=== PATIENT | female | born 1990 | race Caucasian/White ===

== ENCOUNTER → 2023-04-24 | Outpatient (CLI) | payer BC ==
[~2023-04-24] MED LIST: CYCL10 PO
[2023-04-26 04:11] LABS: CHLAMYDIA TRACHOMATIS, NAA Negative (Negative)
== END ==
LOC: LAB 17:33 → LAB SHORT 17:33
PROVIDERS: Family Medicine
DX: Z34.01 Encounter for supervision of normal first pregnancy, first trimester (principal); Z34.81 Encounter for supervision of other normal pregnancy, first trimester; Z3A.01 Less than 8 weeks gestation of pregnancy
CPT/HCPCS: 87086; 87491; 87591

== ENCOUNTER 2023-11-21 05:44 | Inpatient (IN) | payer BC ==
[2023-11-21] VITALS (18 sets, daily range): BP systolic 111–145; BP diastolic 69–100
[~2023-11-21] VITALS: Ht 162.6 cm; Wt 112.3 kg
[~2023-11-21 05:44] MED LIST changes: +CETI5 PO; +ERGO400; +Vitamin B Comple1 EA
[2023-11-21] MEDS ORDERED: Citric Acid/Sodium Citrate 30 ML BTL PO SCH (05:55)
[2023-11-21] MEDS ORDERED: Metoclopramide HCl 5MG / ML 2ML Vial IV ONE (05:55)
[2023-11-21] MEDS ORDERED: Lactated Ringer's 1,000 ML IV SCH ×2 (05:55→06:25)
[2023-11-21] MEDS ORDERED: Cefazolin 2000MG/Dextrose,ISO 50 ML IV SCH (06:00)
[2023-11-21] MEDS ORDERED: CeFAZolin Sodium 2,000 MG in NS 100 ML IV SCH (06:05)
[2023-11-21] MEDS ORDERED: Ondansetron HCl 2 MG / ML 2ML Vial IV PRN ×2 (06:20→09:05)
[2023-11-21] MEDS ORDERED: Oxytocin 10 Unit / ML Vial IM SCH (06:20)
[2023-11-21] MEDS ORDERED: Methylergonovine Maleate 0.2MG / ML 1ML Amp IM SCH (06:25)
[2023-11-21] MEDS ORDERED: FentaNYL Citrate 50 MCG/ML 2 ML Injection IV PRN (06:25)
[2023-11-21] MEDS ORDERED: Carboprost Tromethamine 250 MCG/ML 1ML Amp IM SCH (06:25)
[2023-11-21 06:39] LABS: BASOPHILS ABSOLUTE AUTO 0.02 K/mm3 (0.00-0.23); BASOPHILS PERCENT AUTO 0 % (0-2); EOSINOPHILS ABSOLUTE AUTO 0.16 K/mm3 (0.00-0.68); EOSINOPHILS PERCENT AUTO 2 % (0-6); Hematocrit 31.8 % (33.0-51.0); Hemoglobin 10.8 g/dL (11.5-16.0); IMMATURE GRAN ABSOLUTE AUTO 0.02 K/mm3 (0.00-0.10); IMMATURE GRAN PERCENT AUTO 0 % (0-1); LYMPHOCYTES ABSOLUTE AUTO 1.28 K/mm3 (0.84-5.20); LYMPHOCYTES PERCENT AUTO 17 % (21-46); MONOCYTES ABSOLUTE AUTO 0.48 K/mm3 (0.16-1.47); MONOCYTES PERCENT AUTO 7 % (4-13); Mean Corpuscular Volume 94 fL (80-100); Mean Platelet Volume 11.1 fL (9.1-12.4); NEUTROPHILS ABSOLUTE AUTO 5.47 K/mm3 (1.96-9.15); NEUTROPHILS PERCENT AUTO 74 % (41-73); Platelet Count 168 K/mm3 (150-400); RDW Coefficient Variation 14.3 % (11.7-14.2); RDW Standard Deviation 49.2 fL (35.1-46.3); Red Blood Cell Count 3.37 M/mm3 (3.80-5.20); White Blood Cell Count 7.43 K/mm3 (4.00-11.30)
[2023-11-21 07:03] LABS: Albumin, Blood 2.8 g/dL (3.4-5.0); Albumin/Globulin Ratio 0.7 (0.8-1.8); Bilirubin, Total 0.4 mg/dL (0.1-1.0); Bun/Creatinine Ratio 13.5 (12.0-20.0); Calcium, Blood 9.1 mg/dL (8.5-10.1); Creatinine, Blood 0.52 mg/dL (0.40-1.00); Potassium, Blood 3.5 mmol/L (3.5-5.5); Total Protein, Blood 6.8 g/dL (6.4-8.2)
[2023-11-21] MEDS ORDERED: Morphine Sulfate/PF 1 MG/ML 10MLVIAL ONE (07:19)
[2023-11-21] MEDS ORDERED: Ketorolac Tromethamine 30mg Vial ONE (07:59)
[2023-11-21] MEDS ORDERED: Phenylephrine HCl 100 MCG/ML-NS 10MLSYR (1MG/10ML) ONE (07:59)
--- NOTE | 2023-11-21 08:11 | NUR ---
11/21/23 0811 Patricia Cruz MALE 9/9 APGARS, 3075 GM 6#12
[2023-11-21 08:19] LABS: PCO2 Cord - Arterial 63 mmHg (40-50); pH Cord - Arterial 7.26 (7.28-7.35)
[2023-11-21 08:20] LABS: PO2 Cord - Arterial 17 mmHg (16-20)
[2023-11-21 08:23] LABS: PCO2 Cord - Venous 53 mmHg (40-50); PO2 Cord - Venous > 14.0 mmHg (28-32); pH Umbilical Cord - Venous 7.33 (7.26-7.35)
[2023-11-21] MEDS ORDERED: Methylergonovine Maleate 0.2 MG Tab PO PRN (09:00)
[2023-11-21] MEDS ORDERED: Promethazine HCl 25 MG Tab PO PRN (09:05)
[2023-11-21] MEDS ORDERED: Methylergonovine Maleate 0.2MG / ML 1ML Amp IM PRN (09:05)
[2023-11-21] MEDS ORDERED: Misoprostol 200 MCG Tab PR PRN (09:05)
[2023-11-21] MEDS ORDERED: OxyCODONE HCL 5 MG TAB PO PRN (09:05)
[2023-11-21] MEDS ORDERED: Carboprost Tromethamine 250 MCG/ML 1ML Amp IM PRN (09:05)
[2023-11-21] MEDS ORDERED: Metoclopramide HCl 10 MG Tab PO PRN (09:10)
[2023-11-21] MEDS ORDERED: Acetaminophen 500 MG Tab PO PRN (09:10)
[2023-11-21] MEDS ORDERED: Lanolin Cream TOP SCH (11:40)
[2023-11-21] MEDS ORDERED: Ketorolac Tromethamine 30mg Vial IV SCH (13:50)
[2023-11-21] MEDS ORDERED: Ibuprofen 400 MG Tab PO SCH (16:00)
[2023-11-22 04:25] VITALS: BP 117/64
[2023-11-22 07:04] LABS: BASOPHILS ABSOLUTE AUTO 0.03 K/mm3 (0.00-0.23); BASOPHILS PERCENT AUTO 0 % (0-2); EOSINOPHILS ABSOLUTE AUTO 0.12 K/mm3 (0.00-0.68); EOSINOPHILS PERCENT AUTO 2 % (0-6); Hematocrit 28.9 % (33.0-51.0); Hemoglobin 9.5 g/dL (11.5-16.0); IMMATURE GRAN ABSOLUTE AUTO 0.03 K/mm3 (0.00-0.10); IMMATURE GRAN PERCENT AUTO 0 % (0-1); LYMPHOCYTES ABSOLUTE AUTO 1.08 K/mm3 (0.84-5.20); LYMPHOCYTES PERCENT AUTO 15 % (21-46); MONOCYTES ABSOLUTE AUTO 0.55 K/mm3 (0.16-1.47); MONOCYTES PERCENT AUTO 8 % (4-13); Mean Corpuscular HGB Conc 32.9 g/dL (31.5-36.5); Mean Corpuscular Volume 97 fL (80-100); Mean Platelet Volume 10.8 fL (9.1-12.4); NEUTROPHILS ABSOLUTE AUTO 5.46 K/mm3 (1.96-9.15); NEUTROPHILS PERCENT AUTO 75 % (41-73); Platelet Count 168 K/mm3 (150-400); RDW Coefficient Variation 14.5 % (11.7-14.2); RDW Standard Deviation 50.9 fL (35.1-46.3); Red Blood Cell Count 2.97 M/mm3 (3.80-5.20); White Blood Cell Count 7.27 K/mm3 (4.00-11.30)
[2023-11-22 07:13] VITALS: BP 116/75; BP 119/79
[2023-11-22 11:09] VITALS: BP 115/78
[2023-11-22] MEDS ORDERED: Simethicone 80 MG Chew PO PRN (13:50)
--- NOTE | 2023-11-22 14:46 | NUR ---
REPORT TO ALICIA BLUNT TO ASSUME CARE
[2023-11-22 16:02] VITALS: BP 114/66
[2023-11-22 20:10] VITALS: BP 132/84
[2023-11-22 23:09] VITALS: BP 117/77
[2023-11-23 05:20] VITALS: BP 121/79
[2023-11-23] MEDS ORDERED: IBUP800 PO (08:39)
[2023-11-23] MEDS ORDERED: OXYC5 (08:40)
[2023-11-23] MEDS ORDERED: ACET500 PO (08:40)
--- NOTE | 2023-11-23 09:36 | NUR ---
DISCHARGE MOTHER READY TO DISCHARGE HOME ONCE FOB GETS BACK WITH PRESCRIPTIONS. CARING FOR SELF AND BABY INDEPENDANTLY. NO QUESTIONS OR CONCERNS. VSS. AFEBRILE. LOCHIA SCANT. DISCHARGE TEACHING DONE BY DERRICK VARGAS AND MOTHER VERBALIZES UNDERSTANING OF TEACHING AND FOLLOW UP APPOINTMENTS.
[2023-11-23 10:00] VITALS: BP 111/65
== END 2023-11-23 10:35 | disposition home or self-care (01) | DRG 788 ==
LOC: BC 05:44
PROVIDERS: ADMIT Family Medicine
PROC: 10D00Z1 Extraction of Products of Conception, Low, Open Approach (ICD-10-PCS; principal; 2023-11-21 07:30)
DX: O34.211 Maternal care for low transverse scar from previous cesarean delivery (principal); Z3A.38 38 weeks gestation of pregnancy; Z37.0 Single live birth; O13.4 Gestational [pregnancy-induced] hypertension without significant proteinuria, complicating childbirth; O34.03 Maternal care for unspecified congenital malformation of uterus, third trimester; Q51.3 Bicornate uterus; O32.8XX0 Maternal care for other malpresentation of fetus, not applicable or unspecified; Z91.040 Latex allergy status
CPT/HCPCS: 36415; 36416; 80053; 82803; 82947; 85025; 86850; 86900; 86901; 86923; A9270; J1885; J2274; J2371; J2405; J2765; J7120